=== PATIENT | male | born 1995 | race Caucasian/White ===

== ENCOUNTER 2021-10-01 23:04 | Inpatient (IN) | payer MEDICAID ==
[~2021-10-01] VITALS: Ht 185.4 cm; Wt 85.0 kg
[2021-10-01 23:45] LABS: Hematocrit 49.2 % (41.0-53.0); Mean Corpuscular Hemoglobin 30.9 pg (28.0-32.0); Mean Corpuscular Hgb Conc. 34.5 g/dL (32.0-36.0); Mean Corpuscular Volume 89.6 fL (80.0-100.0); White Blood Cell 28.5 10^3/uL (4.4-10.8)
[2021-10-01 23:55] LABS: Albumin 5.4 g/dL (3.4-5.0); Basophils % (manual) 0 (0.0-2.0); Blast Cells 0; Calcium 11.1 mg/dL (8.5-10.1); Eosinophils % (manual) 0 (0-7); Metamyelocytes % 0; Myelocytes % 0; Potassium 3.3 mmol/L (3.5-5.1); Promyelocytes % 0; Reactive Lymphocytes 0
[2021-10-01 23:59] LABS: BUN/Creatinine Ratio 13.8
[2021-10-02] MEDS ORDERED: ONDANSETRON HCL 4 MG/2 ML VIAL IV ONE
[2021-10-02 00:01] LABS: Bilirubin, Total 1.6 mg/dL (0.2-1.0); Total Protein 9.3 g/dL (6.4-8.2)
[2021-10-02 00:27] LABS: Band Neutrophils % (manual) 11; Lymphocytes % (manual) 7 (10.0-50.0); Monocytes % (manual) 9 (0-12)
[2021-10-02] MEDS ORDERED: IOHEXOL 350 MG/ML 100ML IJ ONE (00:56)
[2021-10-02] MEDS ORDERED: SODIUM CHLORIDE 0.9% 500 ML IV ONE (01:00)
[2021-10-02] MEDS ORDERED: PROCHLORPERAZINE EDISYLATE 5 MG/ML 2ML VIAL IV ONE (01:00)
[2021-10-02] MEDS ORDERED: MORPHINE SULFATE 4 MG/ML SYR/VIAL IV ONE (02:00)
[2021-10-02] MEDS ORDERED: PROMETHAZINE HCL 25 MG/ML 1ML IV ONE (04:15)
[2021-10-02 04:43] LABS: Amphetamine Screen, Urine NEGATIVE (NEGATIVE); Barbiturate Scree,Urine NEGATIVE (NEGATIVE); Cannabinoid Screen, Urine POSITIVE (NEGATIVE); Cocaine Screen, Urine NEGATIVE (NEGATIVE); Opiate Scree,Urine POSITIVE (NEGATIVE); Phencyclidine Screen, Urine NEGATIVE (NEGATIVE)
[2021-10-02 04:51] LABS: Benzodiazephine Screen, Urine NEGATIVE (NEGATIVE)
[2021-10-02 04:58] LABS: Urine Bacteria NONE SEEN /hpf (None Seen); Urine Blood Negative /uL (Negative); Urine Mucus FEW (None Seen); Urine Specific Gravity > 1.050 (1.001-1.035); Urine WBC 1 /hpf (0 - 3)
[2021-10-02 05:04] LABS: Alcohol, Urine < 3.0 mg/dL (0-10)
[2021-10-02] MEDS ORDERED: HYDROcodone-ACET 5/325MG TAB PO PRN (06:15)
[2021-10-02] MEDS ORDERED: ACETAMINOPHEN 325 MG TAB PO PRN (06:15)
[2021-10-02] MEDS ORDERED: SOD CHL 0.9%/ KCL 20MEQ 1,000 ML IV ONE (06:15)
[2021-10-02] MEDS ORDERED: POTASSIUM CHL 20 Meq TABLET PO ONE (06:15)
[2021-10-02] MEDS: ONDANSETRON HCL 4 MG/2 ML VIAL IV PRN ×2 (06:42→10:42)
[2021-10-02 09:00] VITALS: BP_SYST 122; BP_SYST 139; BP_DIAS 83; BP_DIAS 92
[2021-10-02] MEDS ORDERED: PANTOPRAZOLE 40 MG TAB PO SCH (10:00)
[2021-10-02] MEDS: PROMETHAZINE HCL 25 MG/ML 1ML IV PRN ×2 (11:49→18:54)
[2021-10-02 13:00] VITALS: BP 139/93
[2021-10-02] MEDS ORDERED: KETOROLAC TROMETH 30 MG/ML 1ML VIAL IV PRN (14:45)
[2021-10-02] MEDS ORDERED: METOCLOPRAMIDE HCL 5MG/ml INJ 2ml VIAL IV SCH ×2 (15:15→18:00)
[2021-10-02] MEDS: METOCLOPRAMIDE HCL 5MG/ml INJ 2ml VIAL IV SCH ×2 (15:30→21:50)
[2021-10-02] MEDS ORDERED: LIDOCAINE VISCOUS 2% 15ML UD ONE (15:53)
[2021-10-02] MEDS ORDERED: diphenhdrAMINE HCL 50 MG/1 ML VL ONE (15:53)
[2021-10-02] MEDS: fentaNYL CITRATE 100 MCG/2 ML VL ONE ×2 (16:48→16:51)
[2021-10-02] MEDS: MIDAZOLAM HCL 5 MG/ML-1ML VIAL ONE ×3 (16:48→16:54)
[2021-10-02] MEDS: NYSTATIN (MOUTH-THROAT) 500,000 UNITS/5 ML SUSP MT SCH ×2 (18:32→21:50)
[2021-10-02] MEDS: SUCRALFATE 1 GM/10 ML ORAL SUSP PO SCH ×2 (18:32→21:50)
[2021-10-02] MEDS: PANTOPRAZOLE 40 MG/10 ML VIAL INJ IV SCH (21:50)
[2021-10-02] MEDS: MORPHINE SULFATE INJECTION 2 MG/ML SYRG IV PRN (21:51)
[2021-10-02 22:00] VITALS: BP 153/94
[2021-10-03] MEDS: PROMETHAZINE HCL 25 MG/ML 1ML IV PRN ×3 (01:34→21:46)
[2021-10-03] MEDS: SODIUM CHLORIDE 0.9% 1,000 ML IV SCH ×2 (02:27→12:29)
[2021-10-03 05:00] VITALS: BP 154/90
[2021-10-03] MEDS: METOCLOPRAMIDE HCL 5MG/ml INJ 2ml VIAL IV SCH ×4 (05:32→21:47)
[2021-10-03] MEDS: NYSTATIN (MOUTH-THROAT) 500,000 UNITS/5 ML SUSP MT SCH ×4 (05:32→21:47)
[2021-10-03 05:58] LABS: Basophils # (auto) 0 10 ^3/uL (0-0.2); Basophils % (auto) 0.2 % (0.0-2.0); Eosinophils # (auto) 0 10 ^3/uL (0-0.8); Eosinophils % (auto) 0.1 % (0.0-7.0); Hematocrit 42.5 % (41.0-53.0); Lymphocytes # (auto) 1.4 10 ^3/uL (0.4-5.4); Lymphocytes % (auto) 9.5 % (10.0-50.0); Mean Corpuscular Hemoglobin 31.8 pg (28.0-32.0); Mean Corpuscular Hgb Conc. 35.2 g/dL (32.0-36.0); Mean Corpuscular Volume 90.3 fL (80.0-100.0); Monocytes # (auto) 1.4 10 ^3/uL (0-1.3); Monocytes % (auto) 9.2 % (0.0-12.0); Neutrophils # (auto) 12.2 10 ^3/uL (1.6-8.6); Red Blood Cells 4.71 10^6/uL (4.5-5.90); Red Cell Distribution Width 12.9 % (11.8-14.3)
[2021-10-03 06:02] LABS: INR 1.09 (0.9-1.15)
[2021-10-03 06:10] LABS: Potassium 3.4 mmol/L (3.5-5.1)
[2021-10-03 06:16] LABS: Albumin 3.8 g/dL (3.4-5.0); Bilirubin, Total 1.2 mg/dL (0.2-1.0); Calcium 8.9 mg/dL (8.5-10.1); Total Protein 7.3 g/dL (6.4-8.2)
[2021-10-03] MEDS: SUCRALFATE 1 GM/10 ML ORAL SUSP PO SCH ×4 (06:55→21:48)
[2021-10-03] MEDS: MORPHINE SULFATE INJECTION 2 MG/ML SYRG IV PRN ×2 (08:52→21:37)
[2021-10-03 09:14] VITALS: BP 167/101
[2021-10-03] MEDS: PANTOPRAZOLE 40 MG/10 ML VIAL INJ IV SCH ×2 (09:58→21:47)
[2021-10-03 13:00] VITALS: BP 159/100
[2021-10-03 16:52] VITALS: BP 158/99
[2021-10-03 17:15] VITALS: BP 163/90
[2021-10-03 22:00] VITALS: BP 164/101
[2021-10-04] MEDS: MORPHINE SULFATE INJECTION 2 MG/ML SYRG IV PRN ×2 (03:50→12:09)
[2021-10-04] MEDS: METOCLOPRAMIDE HCL 5MG/ml INJ 2ml VIAL IV SCH ×3 (03:51→16:22)
[2021-10-04 05:00] VITALS: BP 152/101
[2021-10-04] MEDS: NYSTATIN (MOUTH-THROAT) 500,000 UNITS/5 ML SUSP MT SCH ×2 (06:40→11:11)
[2021-10-04] MEDS: SUCRALFATE 1 GM/10 ML ORAL SUSP PO SCH ×2 (06:40→11:11)
[2021-10-04 09:00] VITALS: BP 151/85
[2021-10-04] MEDS: PANTOPRAZOLE 40 MG/10 ML VIAL INJ IV SCH (09:34)
[2021-10-04 13:00] VITALS: BP 149/96
[2021-10-04] MEDS ORDERED: PANT40T PO (15:12)
[2021-10-04] MEDS ORDERED: NYS5LQ MT (15:12)
[2021-10-04] MEDS ORDERED: SUCR1SUS10 PO (15:12)
[2021-10-04 15:51] VITALS: BP 149/96
[2021-10-04 16:42] VITALS: BP 152/97
== END 2021-10-04 17:21 | disposition home or self-care (01) | DRG 241 ==
LOC: ER 23:04 → OVERFLOW 10-02 06:03 → WEST WING 10-02 09:29
PROVIDERS: ADMIT Nurse Practitioner; ATTEND Hospitalist
PROC: 0DB68ZX Excision of Stomach, Via Natural or Artificial Opening Endoscopic, Diagnostic (ICD-10-PCS; 2021-10-02)
PROC: 0DB58ZX Excision of Esophagus, Via Natural or Artificial Opening Endoscopic, Diagnostic (ICD-10-PCS; 2021-10-02)
PROC: 0DB98ZX Excision of Duodenum, Via Natural or Artificial Opening Endoscopic, Diagnostic (ICD-10-PCS; principal; 2021-10-02 16:44)
DX: K29.71 Gastritis, unspecified, with bleeding (principal); N17.9 Acute kidney failure, unspecified; K22.11 Ulcer of esophagus with bleeding; K31.9 Disease of stomach and duodenum, unspecified; K21.9 Gastro-esophageal reflux disease without esophagitis; F12.90 Cannabis use, unspecified, uncomplicated; K29.70 Gastritis, unspecified, without bleeding; K44.9 Diaphragmatic hernia without obstruction or gangrene; Z20.822 Contact with and (suspected) exposure to COVID-19
CPT/HCPCS: 36415; 43239; 70490; 74177; 80053; 80307; 80320; 81001; 83690; 85007; 85025; 85027; 85610; 85730; 96365; 96375; C9113; G0378; J1885; J2250; J2405

== ENCOUNTER 2022-05-07 08:03 | Emergency (ER) | payer MEDICAID, OTHER ==
[~2022-05-07] VITALS: Ht 185.4 cm; Wt 76.6 kg
[~2022-05-07 08:03] MED LIST: NYS5LQ MT; PANT40T PO; SUCR1SUS10 PO
[2022-05-07 08:33] LABS: Urine Bacteria NONE SEEN /hpf (None Seen); Urine Blood Negative /uL (Negative); Urine Hyaline Cast FEW /lpf (0 - 2); Urine Mucus FEW (None Seen); Urine WBC 2 /hpf (0 - 3)
[2022-05-07 08:40] LABS: Basophils # (auto) 0.1 10 ^3/uL (0-0.2); Basophils % (auto) 0.3 % (0.0-2.0); Eosinophils # (auto) 0 10 ^3/uL (0-0.8); Eosinophils % (auto) 0.2 % (0.0-7.0); Nucleated Red Blood Cells % 0.1 %; White Blood Cell 16.7 10^3/uL (4.4-10.8)
[2022-05-07 08:42] LABS: Hematocrit 53.9 % (41.0-53.0); Hemoglobin 18.2 g/dL (13.5-17.5); Lymphocytes % (auto) 11.8 % (10.0-50.0); Mean Corpuscular Hemoglobin 30.2 pg (28.0-32.0); Mean Corpuscular Hgb Conc. 33.9 g/dL (32.0-36.0); Mean Corpuscular Volume 89.3 fL (80.0-100.0); Monocytes # (auto) 1.3 10 ^3/uL (0-1.3); Monocytes % (auto) 7.7 % (0.0-12.0); Neutrophils # (auto) 13.3 10 ^3/uL (1.6-8.6); Red Blood Cells 6.04 10^6/uL (4.5-5.90); Red Cell Distribution Width 13.2 % (11.8-14.3)
[2022-05-07 08:58] LABS: Albumin 5.4 g/dL (3.4-5.0); Calcium 10.9 mg/dL (8.5-10.1)
[2022-05-07 09:01] LABS: BUN/Creatinine Ratio 19.7; Bilirubin, Total 3.2 mg/dL (0.2-1.0)
[2022-05-07] MEDS ORDERED: SODIUM CHLORIDE 0.9% 1,000 ML IV ONE ×4 (10:30→11:45)
[2022-05-07] MEDS ORDERED: ONDANSETRON HCL 4 MG/2 ML VIAL IV ONE (10:30)
[2022-05-07] MEDS ORDERED: MORPHINE SULFATE 4 MG/ML SYR/VIAL IV ONE (10:30)
[2022-05-07] MEDS ORDERED: PANT40TA2 PO (11:39)
[2022-05-07 13:06] VITALS: BP 139/85
[2022-05-07 13:44] LABS: Amphetamine Screen, Urine NEGATIVE (NEGATIVE); Barbiturate Scree,Urine NEGATIVE (NEGATIVE); Benzodiazephine Screen, Urine NEGATIVE (NEGATIVE); Cocaine Screen, Urine NEGATIVE (NEGATIVE); Opiate Scree,Urine NEGATIVE (NEGATIVE); Phencyclidine Screen, Urine NEGATIVE (NEGATIVE)
[2022-05-07 13:53] LABS: Cannabinoid Screen, Urine POSITIVE (NEGATIVE)
== END 2022-05-07 14:22 | disposition home or self-care (01) ==
LOC: ER 08:07
DX: K20.90 Esophagitis, unspecified without bleeding (principal); R06.02 Shortness of breath; F12.10 Cannabis abuse, uncomplicated
CPT/HCPCS: 36415; 71045; 74176; 80053; 80307; 81001; 83690; 84484; 85025; 96361; 96374; 96375; 99285; J2270; J2405; J7030